=== PATIENT | female | born 1995 | race Caucasian/White ===

== ENCOUNTER 2016-11-15 15:50 | Emergency (ER) | payer OTHER ==
--- NOTE | 2016-11-15 17:13 | ED CLINICAL REPORT ---
Clinical Report - Physicians/Mid Levels [facility] [address] [place] [address] 11/15/2016 15:51 [id number] Time Seen: 16:18; initial patient contact, initial documentation, patient care assumed. Arrived- By private vehicle. Historian- patient. HISTORY OF PRESENT ILLNESS Chief Complaint: DYSURIA. This started about 4 days ago and still present. The symptoms are described as moderate. Modifying factors- worsened by urination. Not relieved by anything. No abdominal pain, pelvic pain, vaginal pain, low back pain or flank pain. No abnormal bleeding, vaginal discharge or hematuria. She has had pain with urination and urgency of urination. The patient has had urinary frequency. Sexually active. Uses an IUD as a means of control. (pt stating she can feel iud strings when she wipes, it was placed a month ago, and she really is not worried about it, she thinks she has a bladder infection). Denies current . Similar symptoms previously: None. Recent medical care: Not recently seen/assessed. REVIEW OF SYSTEMS No nausea, vomiting, diarrhea, fever or difficulty breathing. No chest pain. All systems otherwise negative, except as recorded above. PAST HISTORY Negative. SOCIAL HISTORY Light tobacco smoker. No alcohol use or drug use. No recent travel. Is a local resident. FAMILY HISTORY Negative. ADDITIONAL NOTES The nursing notes have been reviewed with agreement regarding the chief complaint, HPI, ROS, PMH and patient medications and allergies. PHYSICAL EXAM Vital Signs: 11/15/2016 16:02 BP: 107/68. HR: 68. RR: 18. O2 saturation: 100%. Temp: 98.2 F. Pain level now: 4/10. Have been reviewed as normal and appear to be correct. Appearance: Alert. Oriented X3. No acute distress. HEENT: Normal external inspection. ENT: Pharynx normal. Neck: Neck supple. CVS: Heart sounds normal. Respiratory: No respiratory distress. Breath sounds normal. Chest nontender. Abdomen: Soft and nontender. Back: Normal external inspection. Skin: Skin warm and dry. Normal skin color. No rash. Normal skin turgor. Extremities: Extremities nontender. No lower extremity edema. Neuro: Oriented X 3. Mood/affect normal. No motor deficit. No sensory deficit. PROGRESS AND PROCEDURES Patient counseled in person regarding the patient's stable condition, test results and diagnosis. 17:12. Differential Diagnosis: Other possible considerations: uti, urosepsis, pyelo, kidney stone, std. Above considerations are based on history, physical exam and laboratory data. Differential diagnosis was discussed with patient. Disposition: Discharged home in good and unchanged condition (17:12). Condition: good and stable. CLINICAL IMPRESSION Acute urinary tract infection with cystitis. No pyelonephritis or hematuria. Not associated with indwelling catheter or obstruction. INSTRUCTIONS Drink plenty of fluids for the next 24 hours until better. Warnings: GENERAL WARNINGS: Return or contact your physician immediately if your condition worsens or changes unexpectedly, if not improving as expected, or if other problems arise. Specifically return if problem worsens. Prescription Medications: Pyridium 200 mg: take 1 orally every 8 hours as needed for urinary problems. Dispense six (6). No refills. Substitution is permissible. Macrobid 100 mg: take 1 capsule orally every 12 hours for 5 days. No refill. Follow-up: Follow up with your doctor in about five days as needed. Call for an appointment. Summary of care provided to patient. Understanding of the discharge instructions verbalized by patient. (Electronically signed by Oneida Jimenez A.R.N.P. 11/15/2016 17:32)
--- NOTE | 2016-11-15 17:13 | ED NURSING NOTES ---
Clinical Report - Nurses [facility] [place] [address] [place] [address] 11/15/2016 15:51 [id number] Triage time 16:02. Acuity: LEVEL 3. Chief Complaint: PAINFUL URINATION, URGENCY and FREQUENCY. Alert. No acute distress. LUIS COMA SCORE: Luis Coma Scale: 15- eyes open spontaneously (4); best verbal response- oriented x 4 (5); best motor response- obeys commands (6). --16:08 Chapis Joshua R.N. 16:02 11/15/16. BP: 107/68. HR: 68. RR: 18. O2 saturation: 100% on room air. Temp: 98.2 F (oral). Pain level now: 12/20. --16:08 Chapis Joshua R.N. Weight: 68 kg stated. Height/Length: 66 inches Per Patient. BMI: 24.2. --16:05 Chapis Joshua R.N. Medications None. --16:03 Chapis Joshua R.N. Allergies No Known Drug Allergy. --16:04 Chapis Joshua R.N. History Arrived by private vehicle. Historian: patient. Accompanied by family. Primary physician (none). Onset. (about 4 days). PAST MEDICAL HX: Uses an intrauterine device. SOCIAL HX: Light tobacco smoker- less than 1/2 a pack per day. No alcohol use or drug use. FALL RISK ASSESSMENT: Fall risk assessment completed. No fall risk identified. FUNCTIONAL ASSESSMENT: Functional assessment: no impairments noted. LEARNING NEEDS ASSESSMENT: The learning needs assessment revealed no barriers. --16:08 Chapis Joshua R.N. PROBLEMS: no known problems. ADDITIONAL SURGERIES: no known surgeries. Assessment GENERAL / NEURO / PSYCH: Alert. Oriented X 4. Appears in no acute distress. Patient appears calm and cooperative. RESPIRATORY: Respirations not labored. SKIN: Skin is warm. --16:08 Chapis Joshua R.N. Interventions <<STRICKEN ENTRY-- ID band on patient. To treatment room. --16:08 Chapis Joshua R.N. --END STRIKE>> Correction --16:09 Chapis Joshua R.N. ID band on patient. To waiting room. --16:09 Chapis Joshua R.N. PHYSICAL ASSESSMENT 16:16 17. Ambulatory to room. Patient gowned. GENERAL / NEURO / PSYCH: Alert. Oriented X 4. RESPIRATORY: Respirations not labored. CVS: Capillary refill less than 2 seconds. GI / : Abdomen soft. SKIN: Skin is warm and dry. --16:17 Isabel Griffin R.N. NURSING PROGRESS NOTES 16:11. :patient confirmed. Clean catch urine collected; sample sent to lab. Specimen labeled in the presence of the patient. --16:11 Chapis Joshua R.N. 16:16 11/15/16. Patient gowned. Head of bed elevated. Reassurance given. Patient identifiers checked. Call light placed in reach. Side rails up. Bed placed in lowest position. Patient ready for evaluation- chart flagged. --16:16 Isabel Griffin R.N. DISPOSITION / DISCHARGE 17:20. Condition at departure: unchanged and stable. No learning barriers present. Discharge instructions provided and reviewed with the patient. Reviewed warnings (no sexual contact). Reviewed medication(s) (pyridium, macrobid). Patient verbalized understanding. Written instructions provided in Tajik. The patient was discharged home and unaccompanied at time of discharge. She left the Emergency Department ambulatory and via private vehicle. Patient driving. --17:34 Isabel Griffin R.N. 17:10 11/15/16. BP: 102/66. HR: 70. RR: 16. O2 saturation: 100%. Temp: deferred. Pain level now: 12/20. --17:34 Isabel Griffin R.N. Locked/Released at 11/15/2016 17:35 by Isabel Griffin R.N.
--- NOTE | 2016-11-15 17:13 | ED ORDER SUMMARY ---
..... Patient: SABRINA AVALOS OrderSheet [facility] VisitID: [id number] [address] [place] [address] 20y, F Registration Date/Time: 11/15/2016 ORDER SHEET Weight: 68.0 kg (stated) Allergies: No Known Drug Allergy GENERAL ORDERS: UA-Culture if indicated Urgent (16:11 11/15/2016 Eneida R.NArya per protocol) (16:11 Eneida R.N.) Urine Urgent (16:11 11/15/2016 Eneida R.N. per protocol) (16:11 Eneida R.N.) MEDICATION ORDERS: IV FLUIDS: ORDER SHEET NOTES: [Electronically signed by Oneida JimenezPArya (17:32 11/15/2016)] [Electronically signed by Isabel Griffin R.N. (17:35 11/15/2016)] [Electronically locked/signed by Isabel Griffin R.N. (17:35 11/15/2016)]
--- NOTE | 2016-11-15 17:13 | ED ORDER SUMMARY ---
..... Patient: SABRINA AVALOS OrderSheet [facility] VisitID: [id number] [address] [place] [address] 20y, F Registration Date/Time: 11/15/2016 ORDER SHEET Weight: 68.0 kg (stated) Allergies: No Known Drug Allergy GENERAL ORDERS: UA-Culture if indicated Urgent (16:11 11/15/2016 Eneiad R.NArya per protocol) (16:11 Eneida R.N.) Urine Urgent (16:11 11/15/2016 Eneida R.N. per protocol) (16:11 Eneida R.N.) MEDICATION ORDERS: IV FLUIDS: ORDER SHEET NOTES: [Electronically signed by Oneida JimenezPArya (17:32 11/15/2016)] [Electronically signed by Isabel Griffin R.N. (17:35 11/15/2016)] [Electronically locked/signed by Isabel Griffin R.N. (17:35 11/15/2016)]
--- NOTE | 2016-11-15 17:35 | ED MED RECONCILIATION SUMMARY ---
Patient: SABRINA AVALOS Medication Reconciliation Report [facility] VisitID: [id number] [address] [place] [address] 20y, F Registration Date/Time: 11/15/2016 Weight: 68.0 kg Height/Length: 66 in. BMI: 24.2 ALLERGIES: No Known Drug Allergy The patient's Home Medications are listed below: NONE. The source(s) of the original Home Medication information: Not obtained. The following Medications were given to the patient in the Emergency Department: None. The following Medications were prescribed to the patient: Pyridium 200 mg: take 1 orally every 8 hours as needed for urinary problems. Dispense six (6). No refills. Substitution is permissible. -- Oneida Jimenez, Cristina.R.N.P. Macrobid 100 mg: take 1 capsule orally every 12 hours for 5 days. No refill. -- Oneida Jimenez A.R.N.P.
--- NOTE | 2016-11-15 17:35 | ED DISCHARGE INSTRUCTIONS ---
Patient: SABRINA AVALOS General Instructions [facility] VisitID: [id number] [place] [address] 20y, F Registration Date/Time: 11/15/2016 Acute urinary tract infection with cystitis. No pyelonephritis or hematuria. Not associated with indwelling catheter or obstruction. INSTRUCTIONS Drink plenty of fluids for the next 24 hours until better. Warnings: GENERAL WARNINGS: Return or contact your physician immediately if your condition worsens or changes unexpectedly, if not improving as expected, or if other problems arise. Specifically return if problem worsens. Prescription Medications: Pyridium 200 mg: take 1 orally every 8 hours as needed for urinary problems. Dispense six (6). No refills. Substitution is permissible. Macrobid 100 mg: take 1 capsule orally every 12 hours for 5 days. No refill. Follow-up: Follow up with your doctor in about five days as needed. Call for an appointment. Summary of care provided to patient. Understanding of the discharge instructions verbalized by patient. ADDITIONAL INFORMATION Bladder Infection,Female (Adult) A bladder infection ("cystitis" or "UTI") usually causes a constant urge to urinate and a burning when passing urine. Urine may be cloudy, smelly or dark. There may be pain in the lower abdomen. A bladder infection occurs when bacteria from the vaginal area enter the bladder opening (urethra). This can occur from sexual intercourse, wearing tight clothing, dehydration and other factors. Home Care: Drink lots of fluids (at least 6-8 glasses a day, unless you must restrict fluids for other medical reasons). This will force the medicine into your urinary system and flush the bacteria out of your body. Avoid sexual intercourse until your symptoms are gone. Avoid caffeine, alcohol and spicy foods. These can irritate the bladder. A bladder infection is treated with antibiotics. You may also be given Pyridium (generic = phenazopyridine) to reduce the burning sensation. This medicine will cause your urine to become a bright orange color. The orange urine may stain clothing. You may wear a pad or panty-liner to protect clothing. Preventing Future Infections: Always wipe from front to back after a bowel movement. Keep the genital area clean and dry. Drink plenty of fluids each day to avoid dehydration. Both sexual partners should wash before intercourse. Urinate right after intercourse to flush out the bladder. Wear cotton underwear and cotton-lined panty hose; avoid tight-fitting pants. If you are on control pills and are having frequent bladder infections, discuss with your doctor. Follow Up: Return to this facility or see your doctor if ALL symptoms are not gone after three days of treatment. Get Prompt Medical Attention if any of the following occur: Fever of 100.4F (38C) or higher, or as directed by your healthcare provider No improvement by the third day of treatment Increasing back or abdominal pain Repeated vomiting; unable to keep medicine down Weakness, dizziness or fainting Vaginal discharge Pain, redness or swelling in the labia (outer vaginal area) Phenazopyridine Hydrochloride Oral tablet What is this medicine? PHENAZOPYRIDINE (fen az oh PEER i nadja) is a pain reliever. It is used to stop the pain, burning, or discomfort caused by infection or irritation of the urinary tract. This medicine is not an antibiotic. It will not cure a urinary tract infection. How should I use this medicine? Take this medicine by mouth with a glass of water. Follow the directions on the prescription label. Take after meals. Take your doses at regular intervals. Do not take your medicine more often than directed. Do not skip doses or stop your medicine early even if you feel better. Do not stop taking except on your doctor's advice. Talk to your raimann machine operator regarding the use of this medicine in children. Special care may be needed. What side effects may I notice from receiving this medicine? Side effects that you should report to your doctor or health acute care physician as soon as possible: allergic reactions like skin rash, itching or hives, swelling of the face, lips, or tongue blue or purple color of the skin difficulty breathing fever less urine unusual bleeding, bruising unusual tired, weak vomiting yellowing of the eyes or skin Side effects that usually do not require medical attention (report to your doctor or health acute care physician if they continue or are bothersome): dark urine headache stomach upset What may interact with this medicine? Interactions are not expected. What if I miss a dose? If you miss a dose, take it as soon as you can. If it is almost time for your next dose, take only that dose. Do not take double or extra doses. Where should I keep my medicine? Keep out of the reach of children. Store at room temperature between 15 and 30 degrees C (59 and 86 degrees F). Protect from light and moisture. Throw away any unused medicine after the expiration date. What should I tell my health care provider before I take this medicine? They need to know if you have any of these conditions: sxeqsng-3-jtyeqlnes dehydrogenase (G6PD) deficiency kidney disease an unusual or allergic reaction to phenazopyridine, other medicines, foods, dyes, or preservatives or trying to get breast-feeding What should I watch for while using this medicine? Tell your doctor or health acute care physician if your symptoms do not improve or if they get worse. This medicine colors body fluids red. This effect is harmless and will go away after you are done taking the medicine. It will change urine to an dark orange or red color. The red color may stain clothing. Soft contact lenses may become permanently stained. It is best not to wear soft contact lenses while taking this medicine. If you are diabetic you may get a false positive result for sugar in your urine. Talk to your health care provider. Nitrofurantoin, Nitrofurantoin, Macrocrystalline Oral capsule What is this medicine? NITROFURANTOIN (dalia malena alegre AN toyn) is an antibiotic. It is used to treat urinary tract infections. How should I use this medicine? Take this medicine by mouth with a glass of water. Follow the directions on the prescription label. Take this medicine with food or milk. Take your doses at regular intervals. Do not take your medicine more often than directed. Do not stop taking except on your doctor's advice. Talk to your raimann machine operator regarding the use of this medicine in children. While this drug may be prescribed for selected conditions, precautions do apply. What side effects may I notice from receiving this medicine? Side effects that you should report to your doctor or health acute care physician as soon as possible: allergic reactions like skin rash or hives, swelling of the face, lips, or tongue chest pain cough difficulty breathing dizziness, drowsiness fever or infection joint aches or pains pale or blue-tinted skin redness, blistering, peeling or loosening of the skin, including inside the mouth tingling, burning, pain, or numbness in hands or feet unusual bleeding or bruising unusually weak or tired yellowing of eyes or skin Side effects that usually do not require medical attention (report to your doctor or health acute care physician if they continue or are bothersome): dark urine diarrhea headache loss of appetite nausea or vomiting temporary hair loss What may interact with this medicine? antacids containing magnesium trisilicate probenecid quinolone antibiotics like ciprofloxacin, lomefloxacin, norfloxacin and ofloxacin sulfinpyrazone What if I miss a dose? If you miss a dose, take it as soon as you can. If it is almost time for your next dose, take only that dose. Do not take double or extra doses. Where should I keep my medicine? Keep out of the reach of children. Store at room temperature between 15 and 30 degrees C (59 and 86 degrees F). Protect from light. Throw away any unused medicine after the expiration date. What should I tell my health care provider before I take this medicine? They need to know if you have any of these conditions: anemia diabetes apfzgja-6-slutpziup dehydrogenase deficiency kidney disease liver disease lung disease other chronic illness an unusual or allergic reaction to nitrofurantoin, other antibiotics, other medicines, foods, dyes or preservatives or trying to get breast-feeding What should I watch for while using this medicine? Tell your doctor or health acute care physician if your symptoms do not improve or if you get new symptoms. Drink several glasses of water a day. If you are taking this medicine for a long time, visit your doctor for regular checks on your progress. If you are diabetic, you may get a false positive result for sugar in your urine with certain brands of urine tests. Check with your doctor. You have been given the following additional information: Bladder Infection, Female (Adult) Phenazopyridine Hydrochloride Oral tablet Nitrofurantoin, Nitrofurantoin, Macrocrystalline Oral capsule (Electronically signed by Oneida Jimenez A.R.N.P. 11/15/2016 17:32)
--- NOTE | 2016-11-15 17:35 | ED DISCHARGE INSTRUCTIONS ---
Patient: SABRINA AVLAOS General Instructions [facility] VisitID: [id number] [place] [address] 20y, F Registration Date/Time: 11/15/2016 Acute urinary tract infection with cystitis. No pyelonephritis or hematuria. Not associated with indwelling catheter or obstruction. INSTRUCTIONS Drink plenty of fluids for the next 24 hours until better. Warnings: GENERAL WARNINGS: Return or contact your physician immediately if your condition worsens or changes unexpectedly, if not improving as expected, or if other problems arise. Specifically return if problem worsens. Prescription Medications: Pyridium 200 mg: take 1 orally every 8 hours as needed for urinary problems. Dispense six (6). No refills. Substitution is permissible. Macrobid 100 mg: take 1 capsule orally every 12 hours for 5 days. No refill. Follow-up: Follow up with your doctor in about five days as needed. Call for an appointment. Summary of care provided to patient. Understanding of the discharge instructions verbalized by patient. ADDITIONAL INFORMATION Bladder Infection,Female (Adult) A bladder infection ("cystitis" or "UTI") usually causes a constant urge to urinate and a burning when passing urine. Urine may be cloudy, smelly or dark. There may be pain in the lower abdomen. A bladder infection occurs when bacteria from the vaginal area enter the bladder opening (urethra). This can occur from sexual intercourse, wearing tight clothing, dehydration and other factors. Home Care: Drink lots of fluids (at least 6-8 glasses a day, unless you must restrict fluids for other medical reasons). This will force the medicine into your urinary system and flush the bacteria out of your body. Avoid sexual intercourse until your symptoms are gone. Avoid caffeine, alcohol and spicy foods. These can irritate the bladder. A bladder infection is treated with antibiotics. You may also be given Pyridium (generic = phenazopyridine) to reduce the burning sensation. This medicine will cause your urine to become a bright orange color. The orange urine may stain clothing. You may wear a pad or panty-liner to protect clothing. Preventing Future Infections: Always wipe from front to back after a bowel movement. Keep the genital area clean and dry. Drink plenty of fluids each day to avoid dehydration. Both sexual partners should wash before intercourse. Urinate right after intercourse to flush out the bladder. Wear cotton underwear and cotton-lined panty hose; avoid tight-fitting pants. If you are on control pills and are having frequent bladder infections, discuss with your doctor. Follow Up: Return to this facility or see your doctor if ALL symptoms are not gone after three days of treatment. Get Prompt Medical Attention if any of the following occur: Fever of 100.4F (38C) or higher, or as directed by your healthcare provider No improvement by the third day of treatment Increasing back or abdominal pain Repeated vomiting; unable to keep medicine down Weakness, dizziness or fainting Vaginal discharge Pain, redness or swelling in the labia (outer vaginal area) Phenazopyridine Hydrochloride Oral tablet What is this medicine? PHENAZOPYRIDINE (fen az oh PEER i nadja) is a pain reliever. It is used to stop the pain, burning, or discomfort caused by infection or irritation of the urinary tract. This medicine is not an antibiotic. It will not cure a urinary tract infection. How should I use this medicine? Take this medicine by mouth with a glass of water. Follow the directions on the prescription label. Take after meals. Take your doses at regular intervals. Do not take your medicine more often than directed. Do not skip doses or stop your medicine early even if you feel better. Do not stop taking except on your doctor's advice. Talk to your folder seamer automatic regarding the use of this medicine in children. Special care may be needed. What side effects may I notice from receiving this medicine? Side effects that you should report to your doctor or health geriatric personal care aide as soon as possible: allergic reactions like skin rash, itching or hives, swelling of the face, lips, or tongue blue or purple color of the skin difficulty breathing fever less urine unusual bleeding, bruising unusual tired, weak vomiting yellowing of the eyes or skin Side effects that usually do not require medical attention (report to your doctor or health geriatric personal care aide if they continue or are bothersome): dark urine headache stomach upset What may interact with this medicine? Interactions are not expected. What if I miss a dose? If you miss a dose, take it as soon as you can. If it is almost time for your next dose, take only that dose. Do not take double or extra doses. Where should I keep my medicine? Keep out of the reach of children. Store at room temperature between 15 and 30 degrees C (59 and 86 degrees F). Protect from light and moisture. Throw away any unused medicine after the expiration date. What should I tell my health care provider before I take this medicine? They need to know if you have any of these conditions: fmiglgc-2-hcwapwjgn dehydrogenase (G6PD) deficiency kidney disease an unusual or allergic reaction to phenazopyridine, other medicines, foods, dyes, or preservatives or trying to get breast-feeding What should I watch for while using this medicine? Tell your doctor or health geriatric personal care aide if your symptoms do not improve or if they get worse. This medicine colors body fluids red. This effect is harmless and will go away after you are done taking the medicine. It will change urine to an dark orange or red color. The red color may stain clothing. Soft contact lenses may become permanently stained. It is best not to wear soft contact lenses while taking this medicine. If you are diabetic you may get a false positive result for sugar in your urine. Talk to your health care provider. Nitrofurantoin, Nitrofurantoin, Macrocrystalline Oral capsule What is this medicine? NITROFURANTOIN (dalia malena alegre AN toyn) is an antibiotic. It is used to treat urinary tract infections. How should I use this medicine? Take this medicine by mouth with a glass of water. Follow the directions on the prescription label. Take this medicine with food or milk. Take your doses at regular intervals. Do not take your medicine more often than directed. Do not stop taking except on your doctor's advice. Talk to your folder seamer automatic regarding the use of this medicine in children. While this drug may be prescribed for selected conditions, precautions do apply. What side effects may I notice from receiving this medicine? Side effects that you should report to your doctor or health geriatric personal care aide as soon as possible: allergic reactions like skin rash or hives, swelling of the face, lips, or tongue chest pain cough difficulty breathing dizziness, drowsiness fever or infection joint aches or pains pale or blue-tinted skin redness, blistering, peeling or loosening of the skin, including inside the mouth tingling, burning, pain, or numbness in hands or feet unusual bleeding or bruising unusually weak or tired yellowing of eyes or skin Side effects that usually do not require medical attention (report to your doctor or health geriatric personal care aide if they continue or are bothersome): dark urine diarrhea headache loss of appetite nausea or vomiting temporary hair loss What may interact with this medicine? antacids containing magnesium trisilicate probenecid quinolone antibiotics like ciprofloxacin, lomefloxacin, norfloxacin and ofloxacin sulfinpyrazone What if I miss a dose? If you miss a dose, take it as soon as you can. If it is almost time for your next dose, take only that dose. Do not take double or extra doses. Where should I keep my medicine? Keep out of the reach of children. Store at room temperature between 15 and 30 degrees C (59 and 86 degrees F). Protect from light. Throw away any unused medicine after the expiration date. What should I tell my health care provider before I take this medicine? They need to know if you have any of these conditions: anemia diabetes qcadiob-2-baczsodwr dehydrogenase deficiency kidney disease liver disease lung disease other chronic illness an unusual or allergic reaction to nitrofurantoin, other antibiotics, other medicines, foods, dyes or preservatives or trying to get breast-feeding What should I watch for while using this medicine? Tell your doctor or health geriatric personal care aide if your symptoms do not improve or if you get new symptoms. Drink several glasses of water a day. If you are taking this medicine for a long time, visit your doctor for regular checks on your progress. If you are diabetic, you may get a false positive result for sugar in your urine with certain brands of urine tests. Check with your doctor. You have been given the following additional information: Bladder Infection, Female (Adult) Phenazopyridine Hydrochloride Oral tablet Nitrofurantoin, Nitrofurantoin, Macrocrystalline Oral capsule (Electronically signed by Oneida Jimenez A.R.N.P. 11/15/2016 17:32)
--- NOTE | 2016-11-15 17:35 | ED MAR SUMMARY ---
..... Medication Administration Record [facility] [address] [place], [place] [id number] Patient: ALINA MCKOYSABRINA Visit ID: [id number] 20y, F Weight: 68.0 kg Height/Length: 66 in BMI: 24.2 ALLERGIES: No Known Drug Allergy
--- NOTE | 2016-11-15 17:35 | ED MAR SUMMARY ---
..... Medication Administration Record [facility] [address] [place], [place] [id number] Patient: ALINA MCKOYSABRINA Visit ID: [id number] 20y, F Weight: 68.0 kg Height/Length: 66 in BMI: 24.2 ALLERGIES: No Known Drug Allergy
--- NOTE | 2016-11-15 17:35 | ED MED RECONCILIATION SUMMARY ---
Patient: SABRINA AVALOS Medication Reconciliation Report [facility] VisitID: [id number] [address] [place] [address] 20y, F Registration Date/Time: 11/15/2016 Weight: 68.0 kg Height/Length: 66 in. BMI: 24.2 ALLERGIES: No Known Drug Allergy The patient's Home Medications are listed below: NONE. The source(s) of the original Home Medication information: Not obtained. The following Medications were given to the patient in the Emergency Department: None. The following Medications were prescribed to the patient: Pyridium 200 mg: take 1 orally every 8 hours as needed for urinary problems. Dispense six (6). No refills. Substitution is permissible. -- Oneida Jimenez, Cristina.R.N.P. Macrobid 100 mg: take 1 capsule orally every 12 hours for 5 days. No refill. -- Oneida Jimenez A.R.N.P.
== END 2016-11-15 17:20 | disposition home or self-care (01) ==
LOC: ED SRH 15:50
DX: N30.00 Acute cystitis without hematuria (principal); F17.200 Nicotine dependence, unspecified, uncomplicated
CPT/HCPCS: 90004; 90469; 93070

== ENCOUNTER → 2016-11-17 | Emergency (ER) | payer OTHER ==
--- NOTE | 2016-11-18 02:34 | ED ORDER SUMMARY ---
..... Patient: SABRINA AVALOS OrderSheet [facility] VisitID: [id number] [address] [place] [address] 20y, F Registration Date/Time: 11/17/2016 ORDER SHEET Weight: 68.0 kg (stated) Allergies: No Known Drug Allergy GENERAL ORDERS: GC/Chlamydia (Vaginal) (vagina) Urgent (16:11/17/2016 HBivens A.R.N.P.) (Ack 16:10 Cherelle) (16:45 KKnebel R.N.) Wet Prep (Vaginal) (vagina) Urgent (16:11/17/2016 HBivens A.R.N.P.) (Ack 16:10 Cherelle) (16:45 KKnebel R.N.) MEDICATION ORDERS: IV FLUIDS: ORDER SHEET NOTES: [Electronically signed by Isabel Griffin R.N. (17:57 11/17/2016)] [Electronically signed by Oneida Jimenez.R.N.P. (18:09 11/17/2016)] [Electronically locked/signed by Isabel Griffin R.N. (17:57 11/17/2016)]
--- NOTE | 2016-11-18 02:34 | ED NURSING NOTES ---
Clinical Report - Nurses [facility] [address] [place] [address] 11/17/2016 15:33 Patient: SABRINA AVALOS TRIAGE Triage time 1541. Acuity: LEVEL 4. Chief Complaint: PELVIC PAIN and VAGINAL DISCHARGE and (pt in here 2 days ago with UTI, worried that she has smelly discharge, asking to be checked for STI's , had Chlamidia 2 months ago). 15:41. --15:50 Isabel Griffin R.N. 15:40 11/17/16. BP: 117/66. HR: 98. RR: 18. O2 saturation: 99%. Temp: 99.1 F. Pain level now: 510. --15:50 Isabel Griffin R.N. Weight: 68 kg stated. Height/Length: 66 inches Per Patient. BMI: 24.2. --15:42 Isabel Griffin R.N. Medications Pyridium Oral 200 mg, 3x a day. --15:45 Isabel Griffin R.N. Macrobid 100mg bid . --15:45 Isabel Griffin R.N. Allergies No Known Drug Allergy. --15:45 Isabel Griffin R.N. History Arrived by private vehicle. Historian: patient. Accompanied by friend. Primary physician ([facility]ake [facility]). PAST MEDICAL HX: Last normal menstrual period- IUD in place 1 1/2 months. SURGERY HX: No history of previous surgery. SOCIAL HX: Former smoker- less than 1/2 a pack per day. No alcohol use or drug use. --15:50 Isabel Griffin R.N. PROBLEMS: UTI - Urinary Tract Infection. --15:49 Isabel Griffin R.N. Interventions ID band on patient. To treatment room. --15:50 Isabel Griffin R.N. PHYSICAL ASSESSMENT 15:41. Ambulatory to room. Patient gowned. GENERAL / NEURO / PSYCH: Alert. Oriented X 4. Appears anxious. RESPIRATORY: Respirations not labored. CVS: Capillary refill less than 2 seconds. GI / : Abdomen soft. Vaginal discharge present. ( worries because discharge "really smells" --had Chlamydia 2 months ago, worried it may be back). SKIN: Skin is warm and dry. --15:42 Isabel Griffin R.N. NURSING PROGRESS NOTES 15:41 11/17/16. Patient gowned. Head of bed elevated. Reassurance given. Patient identifiers checked. Call light placed in reach. Side rails up. Bed placed in lowest position. --15:41 Isabel Griffin R.N. 15:41 11/17/16. Patient ID band checked for patient name and birthdate: patient confirmed. Clean catch urine collected with return of yellow-colored clear urine; sample sent to lab for urinalysis and culture. Specimen labeled in the presence of the patient. --15:41 Isabel Griffin R.N. 15:50 11/17/16. Patient ready for evaluation- chart flagged. --15:50 Isabel Griffin R.N. 16:10. PELVIC EXAM: Pelvic exam performed by ROLLED HAM LACER. Assisted by one nurse. Preparation: pelvic tray; patient placed in lithotomy position. Procedure: speculum and bimanual exam. Specimens collected and sent to lab: GC, chlamydia, wet prep and DNA probe. Status post-procedure: she was stable. Total time of assist / procedure: 15 minutes. --17:37 Isabel Griffin R.N. DISPOSITION / DISCHARGE Condition at departure: improved. No learning barriers present. Discharge instructions provided and reviewed with the patient. Reviewed medication(s) side effects, precautions, dosing and course information. Reviewed referral to a primary care physician. Patient verbalized understanding. Written instructions provided in Maori. The patient was discharged home. She left the Emergency Department ambulatory and via private vehicle. Patient driving. FALL RISK ASSESSMENT: Fall risk assessment completed. No fall risk identified. --16:47 Margaret Salazar R.N. 16:45 11/17/16. BP: 95/49. HR: 94. RR: 16. O2 saturation: 100%. Pain level now: 0/10. --16:47 Margaret Salazar R.N. Departure time: 16:47 Nov 17 2016. --16:47 Margaret Salazar R.N. Locked/Released at 11/17/2016 17:57 by Isabel Griffin R.N.
--- NOTE | 2016-11-18 02:34 | ED NURSING NOTES ---
Clinical Report - Nurses [facility] [address] [place] [address] 11/17/2016 15:33 Patient: SABRINA AVALOS TRIAGE Triage time 1541. Acuity: LEVEL 4. Chief Complaint: PELVIC PAIN and VAGINAL DISCHARGE and (pt in here 2 days ago with UTI, worried that she has smelly discharge, asking to be checked for STI's , had Chlamidia 2 months ago). 15:41. --15:50 Isabel Griffin R.N. 15:40 11/17/16. BP: 117/66. HR: 98. RR: 18. O2 saturation: 99%. Temp: 99.1 F. Pain level now: 510. --15:50 Isabel Griffin R.N. Weight: 68 kg stated. Height/Length: 66 inches Per Patient. BMI: 24.2. --15:42 Isabel Griffin R.N. Medications Pyridium Oral 200 mg, 3x a day. --15:45 Isabel Griffin R.N. Macrobid 100mg bid . --15:45 Isabel Griffin R.N. Allergies No Known Drug Allergy. --15:45 Isabel Griffin R.N. History Arrived by private vehicle. Historian: patient. Accompanied by friend. 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 PAST MEDICAL HX: Last normal menstrual period- IUD in place 1 1/2 months. SURGERY HX: No history of previous surgery. SOCIAL HX: Former smoker- less than 1/2 a pack per day. No alcohol use or drug use. --15:50 Isabel Griffin R.N. PROBLEMS: UTI - Urinary Tract Infection. --15:49 Isabel Griffin R.N. Interventions ID band on patient. To treatment room. --15:50 Isabel Griffin R.N. PHYSICAL ASSESSMENT 15:41. Ambulatory to room. Patient gowned. GENERAL / NEURO / PSYCH: Alert. Oriented X 4. Appears anxious. RESPIRATORY: Respirations not labored. CVS: Capillary refill less than 2 seconds. GI / : Abdomen soft. Vaginal discharge present. ( worries because discharge "really smells" --had Chlamydia 2 months ago, worried it may be back). SKIN: Skin is warm and dry. --15:42 Isabel Griffin R.N. NURSING PROGRESS NOTES 15:41 11/17/16. Patient gowned. Head of bed elevated. Reassurance given. Patient identifiers checked. Call light placed in reach. Side rails up. Bed placed in lowest position. --15:41 Isabel Griffin R.N. 15:41 11/17/16. Patient ID band checked for patient name and birthdate: patient confirmed. Clean catch urine collected with return of yellow-colored clear urine; sample sent to lab for urinalysis and culture. Specimen labeled in the presence of the patient. --15:41 Isabel Griffin R.N. 15:50 11/17/16. Patient ready for evaluation- chart flagged. --15:50 Isabel Griffin R.N. 16:10. PELVIC EXAM: Pelvic exam performed by PHARMACY STUDENT. Assisted by one nurse. Preparation: pelvic tray; patient placed in lithotomy position. Procedure: speculum and bimanual exam. Specimens collected and sent to lab: GC, chlamydia, wet prep and DNA probe. Status post-procedure: she was stable. Total time of assist / procedure: 15 minutes. --17:37 Isabel Griffin R.N. DISPOSITION / DISCHARGE Condition at departure: improved. No learning barriers present. Discharge instructions provided and reviewed with the patient. Reviewed medication(s) side effects, precautions, dosing and course information. Reviewed referral to a primary care physician. Patient verbalized understanding. Written instructions provided in Tajik. The patient was discharged home. She left the Emergency Department ambulatory and via private vehicle. Patient driving. FALL RISK ASSESSMENT: Fall risk assessment completed. No fall risk identified. --16:47 Margaret Salazar R.N. 16:45 11/17/16. BP: 95/49. HR: 94. RR: 16. O2 saturation: 100%. Pain level now: 0/10. --16:47 Margaret Salazar R.N. Departure time: 16:47 Nov 17 2016. --16:47 Margaret Salazar R.N. Locked/Released at 11/17/2016 17:57 by Isabel Griffin R.N.
--- NOTE | 2016-11-18 02:34 | ED ORDER SUMMARY ---
..... Patient: SABRINA AVALOS OrderSheet [facility] VisitID: [id number] [address] [place] [address] 20y, F Registration Date/Time: 11/17/2016 ORDER SHEET Weight: 68.0 kg (stated) Allergies: No Known Drug Allergy GENERAL ORDERS: GC/Chlamydia (Vaginal) (vagina) Urgent (16:11/17/2016 HBivens A.R.N.P.) (Ack 16:10 Cherelle) (16:45 KKnebel R.N.) Wet Prep (Vaginal) (vagina) Urgent (16:11/17/2016 HBivens A.R.N.P.) (Ack 16:10 Cherelle) (16:45 KKnebel R.N.) MEDICATION ORDERS: IV FLUIDS: ORDER SHEET NOTES: [Electronically signed by Isabel Griffin R.N. (17:57 11/17/2016)] [Electronically signed by Oneida Jimenez.R.N.P. (18:09 11/17/2016)] [Electronically locked/signed by Isabel Griffin R.N. (17:57 11/17/2016)]
--- NOTE | 2016-11-18 02:34 | ED CLINICAL REPORT ---
Clinical Report - Physicians/Mid Levels [facility] [address] [place] [address] 11/17/2016 15:33 [id number] Time Seen: 15:38; upon arrival, initial patient contact, initial documentation, patient care assumed. Arrived- By private vehicle. Historian- patient. RETURN VISIT: recently seen in this ED by me. Seen now for a new unrelated complaint. HISTORY OF PRESENT ILLNESS Chief Complaint: VAGINAL DISCHARGE. This started about 4 days ago and now gone. The symptoms are described as mild. Modifying factors. Not worsened by anything. Not relieved by anything. The patient has had pelvic pain. She has had a vaginal discharge (one time episode of something yellow/white that came out). No vaginal pain, low back pain, flank pain, pain with urination or urinary frequency. No urgency of urination or hematuria. Similar symptoms previously: Once, worse. ( had chlamydia). Recent medical care: The patient was seen recently at this facility in the emergency department. ( txed here by me, x2 days ago, dx with uti, rx macrobid and pyridium). REVIEW OF SYSTEMS No nausea, vomiting, diarrhea, fever or difficulty breathing. No chest pain. All systems otherwise negative, except as recorded above. PAST HISTORY See nurses notes. ( PROBLEMS: UTI - Urinary Tract Infection. --15:49 Elias, Isabel, RAryaN.). Sexually transmitted disease: chlamydia. ( Chlamydia). SOCIAL HISTORY Light tobacco smoker. No alcohol use or drug use. No recent travel. Is a local resident. FAMILY HISTORY Negative. ADDITIONAL NOTES The nursing notes have been reviewed with agreement regarding the chief complaint, HPI, ROS, PMH and patient medications and allergies. PHYSICAL EXAM Vital Signs: 11/17/2016 15:40 BP: 117/66. HR: 98. RR: 18. O2 saturation: 99%. Temp: 99.1 F. Pain level now: 5/10. Appearance: Alert. Oriented X3. No acute distress. HEENT: Normal external inspection. ENT: Pharynx normal. Neck: Neck supple. CVS: Heart sounds normal. Respiratory: No respiratory distress. Breath sounds normal. Chest nontender. Abdomen: Soft and nontender. Back: Normal external inspection. : External inspection abnormal. Speculum exam normal. Bimanual exam normal. (fishy odor). Skin: Skin warm and dry. Normal skin color. No rash. Normal skin turgor. Extremities: Extremities nontender. No lower extremity edema. Neuro: Oriented X 3. Mood/affect normal. No motor deficit. No sensory deficit. LABS, X-RAYS, AND EKG Laboratory Tests: Wet Prep: (JUSTO: 11/17/2016 16:08) ( MsgRcvd 11/17/2016 16:23) Final results SPECIMEN DESCRIPTION: VAGINA Test Result Flag Units (Reference) WET MOUNT CLUE CELLS:: FEW * EPITHELIAL CELLS: MODERATE -- SOURCE?: VAGINAL WHITE BLOOD CELLS: MODERATE TRICHOMONAS:: NONE -- YEAST:: NONE . PROGRESS AND PROCEDURES Patient counseled in person regarding the patient's stable condition, test results and diagnosis. 16:27. Differential Diagnosis: Other possible considerations: chlamydia, gonorrhea, trich, yeast, bv, pid. Above considerations are based on history, physical exam and reassessment. Differential diagnosis was discussed with patient. Disposition: Discharged home in good and unchanged condition (16:28). Condition: good and stable. CLINICAL IMPRESSION Acute mild bacterial vaginitis INSTRUCTIONS Warnings: GENERAL WARNINGS: Return or contact your physician immediately if your condition worsens or changes unexpectedly, if not improving as expected, or if other problems arise. Specifically return if problem worsens. Prescription Medications: Flagyl 500 mg: Take 1 tablet orally every 12 hours for 7 days. No refill. Substitution is permissible. Follow-up: Follow up with your doctor in about three days as needed. Call for an appointment. Summary of care provided to patient. Understanding of the discharge instructions verbalized by patient. (Electronically signed by Oneida Jimenez A.R.N.P. 11/17/2016 18:09)
--- NOTE | 2016-11-18 02:36 | ED DISCHARGE INSTRUCTIONS ---
Patient: SABRINA AVALOS General Instructions [facility] VisitID: [id number] [place] [address] 20y, F Registration Date/Time: 11/17/2016 Acute mild bacterial vaginitis INSTRUCTIONS Warnings: GENERAL WARNINGS: Return or contact your physician immediately if your condition worsens or changes unexpectedly, if not improving as expected, or if other problems arise. Specifically return if problem worsens. Prescription Medications: Flagyl 500 mg: Take 1 tablet orally every 12 hours for 7 days. No refill. Substitution is permissible. Follow-up: Follow up with your doctor in about three days as needed. Call for an appointment. Summary of care provided to patient. Understanding of the discharge instructions verbalized by patient. ADDITIONAL INFORMATION Bacterial Vaginosis You have a bacterial infection of the vagina called bacterial vaginosis (BV). It may also be called gardnerella or non-specific vaginitis. BV occurs when the "bad" bacteria outnumber the "good" bacteria that are normally present in the vagina. Symptoms include foul-smelling vaginal discharge (most noticeable after vaginal intercourse). There may also be burning with urination. The burning is caused as the urine passes over the inflamed outer vaginal area. The cause of bacterial vaginosis is not certain. However, your risk is higher if you recently began a new sexual relationship, or have had many sex partners in the past. Your risk is also higher if you douche often. While bacterial vaginosis most often occurs only in sexually active women, this is not a true sexually transmitted disease. You did not get this from your partner. You cannot give it to your partner. The infection may be related to temporary changes in the pH of vaginal fluids after being exposed to semen. Home Care: Keep the genital area clean and free of discharge. Do this by wearing an absorbent sanitary pad and changing it often. Shower daily. When you shower, clean the outer vaginal area with plain soap and water. Do not douche during treatment unless advised to do so by your doctor. Routine douching after treatment is no longer recommended to clean the vagina. It raises your risk of vaginal infection and pelvic inflammatory disease. Avoid having sex until you have finished all antibiotic medicine and all symptoms have gone away. Wear cotton underwear or cotton-lined panty hose. Dont wear pants that are too tight. Limiting the number of sex partners you have lowers your risk of this and other vaginal infections, STDs, and HIV. Take all medicine as directed until it is gone, even if you are feeling better. If you dont do this, symptoms might return. Follow Up with your doctor if symptoms dont go away after the medicine is finished. Get Prompt Medical Attention if any of the following occur: Fever of 100.4F (38C) or higher, or as directed by your healthcare provider Lower abdominal pain Rash or joint pain Painful sores around the outer vaginal area or on your partners penis Metronidazole Oral tablet What is this medicine? METRONIDAZOLE (me troe NI da zole) is an antiinfective. It is used to treat certain kinds of bacterial and protozoal infections. It will not work for colds, flu, or other viral infections. How should I use this medicine? Take this medicine by mouth with a full glass of water. Follow the directions on the prescription label. Take your medicine at regular intervals. Do not take your medicine more often than directed. Take all of your medicine as directed even if you think you are better. Do not skip doses or stop your medicine early. Talk to your fuse assembler regarding the use of this medicine in children. Special care may be needed. What side effects may I notice from receiving this medicine? Side effects that you should report to your doctor or health professional healthcare representative as soon as possible: allergic reactions like skin rash or hives, swelling of the face, lips, or tongue confusion, clumsiness difficulty speaking discolored or sore mouth dizziness fever, infection numbness, tingling, pain or weakness in the hands or feet trouble passing urine or change in the amount of urine redness, blistering, peeling or loosening of the skin, including inside the mouth seizures unusually weak or tired vaginal irritation, dryness, or discharge Side effects that usually do not require medical attention (report to your doctor or health professional healthcare representative if they continue or are bothersome): diarrhea headache irritability metallic taste nausea stomach pain or cramps trouble sleeping What may interact with this medicine? Do not take this medicine with any of the following medications: alcohol or any product that contains alcohol amprenavir oral solution cisapride disulfiram dofetilide dronedarone paclitaxel injection pimozide ritonavir oral solution sertraline oral solution sulfamethoxazole-trimethoprim injection thioridazine ziprasidone This medicine may also interact with the following medications: cimetidine lithium other medicines that prolong the QT interval (cause an abnormal heart rhythm) phenobarbital phenytoin warfarin What if I miss a dose? If you miss a dose, take it as soon as you can. If it is almost time for your next dose, take only that dose. Do not take double or extra doses. Where should I keep my medicine? Keep out of the reach of children. Store at room temperature below 25 degrees C (77 degrees F). Protect from light. Keep container tightly closed. Throw away any unused medicine after the expiration date. What should I tell my health care provider before I take this medicine? They need to know if you have any of these conditions: anemia or other blood disorders disease of the nervous system fungal or yeast infection if you drink alcohol containing drinks liver disease seizures an unusual or allergic reaction to metronidazole, or other medicines, foods, dyes, or preservatives or trying to get breast-feeding What should I watch for while using this medicine? Tell your doctor or health professional healthcare representative if your symptoms do not improve or if they get worse. You may get drowsy or dizzy. Do not drive, use machinery, or do anything that needs mental alertness until you know how this medicine affects you. Do not stand or sit up quickly, especially if you are an older patient. This reduces the risk of dizzy or fainting spells. Avoid alcoholic drinks while you are taking this medicine and for three days afterward. Alcohol may make you feel dizzy, sick, or flushed. If you are being treated for a sexually transmitted disease, avoid sexual contact until you have finished your treatment. Your sexual partner may also need treatment. You have been given the following additional information: Vaginitis, Bacterial Metronidazole Oral tablet (Electronically signed by Oneida Jimenez A.R.N.P. 11/17/2016 18:09)
--- NOTE | 2016-11-18 02:36 | ED MAR SUMMARY ---
..... Medication Administration Record [facility] [address] [place], [place] [id number] Patient: ALINA MCKOYSABRINA Visit ID: [id number] 20y, F Weight: 68.0 kg Height/Length: 66 in BMI: 24.2 ALLERGIES: No Known Drug Allergy
--- NOTE | 2016-11-18 02:36 | ED MAR SUMMARY ---
..... Medication Administration Record [facility] [address] [place], [place] [id number] Patient: ALINA MCKOYSABRINA Visit ID: [id number] 20y, F Weight: 68.0 kg Height/Length: 66 in BMI: 24.2 ALLERGIES: No Known Drug Allergy
--- NOTE | 2016-11-18 02:36 | ED MED RECONCILIATION SUMMARY ---
Patient: SABRINA AVALOS Medication Reconciliation Report [facility] VisitID: [id number] [address] [place] [address] 20y, F Registration Date/Time: 11/17/2016 Weight: 68.0 kg Height/Length: 66 in. BMI: 24.2 ALLERGIES: No Known Drug Allergy The patient's Home Medications are listed below: THE FOLLOWING MEDICATIONS NEED TO BE RECONCILED: Macrobid 100mg bid Pyridium Oral 200 mg, 3x a day The source(s) of the original Home Medication information: Not obtained. The following Medications were given to the patient in the Emergency Department: None. The following Medications were prescribed to the patient: Flagyl 500 mg: Take 1 tablet orally every 12 hours for 7 days. No refill. Substitution is permissible. -- Oneida Jimenez A.R.N.P.
--- NOTE | 2016-11-18 02:36 | ED MED RECONCILIATION SUMMARY ---
Patient: SABRINA AVALOS Medication Reconciliation Report [facility] VisitID: [id number] [address] [place] [address] 20y, F Registration Date/Time: 11/17/2016 Weight: 68.0 kg Height/Length: 66 in. BMI: 24.2 ALLERGIES: No Known Drug Allergy The patient's Home Medications are listed below: THE FOLLOWING MEDICATIONS NEED TO BE RECONCILED: Macrobid 100mg bid Pyridium Oral 200 mg, 3x a day The source(s) of the original Home Medication information: Not obtained. The following Medications were given to the patient in the Emergency Department: None. The following Medications were prescribed to the patient: Flagyl 500 mg: Take 1 tablet orally every 12 hours for 7 days. No refill. Substitution is permissible. -- Oneida Jimenez A.R.N.P.
--- NOTE | 2016-11-18 02:36 | ED DISCHARGE INSTRUCTIONS ---
Patient: SABRINA AVALOS General Instructions [facility] VisitID: [id number] [place] [address] 20y, F Registration Date/Time: 11/17/2016 Acute mild bacterial vaginitis INSTRUCTIONS Warnings: GENERAL WARNINGS: Return or contact your physician immediately if your condition worsens or changes unexpectedly, if not improving as expected, or if other problems arise. Specifically return if problem worsens. Prescription Medications: Flagyl 500 mg: Take 1 tablet orally every 12 hours for 7 days. No refill. Substitution is permissible. Follow-up: Follow up with your doctor in about three days as needed. Call for an appointment. Summary of care provided to patient. Understanding of the discharge instructions verbalized by patient. ADDITIONAL INFORMATION Bacterial Vaginosis You have a bacterial infection of the vagina called bacterial vaginosis (BV). It may also be called gardnerella or non-specific vaginitis. BV occurs when the "bad" bacteria outnumber the "good" bacteria that are normally present in the vagina. Symptoms include foul-smelling vaginal discharge (most noticeable after vaginal intercourse). There may also be burning with urination. The burning is caused as the urine passes over the inflamed outer vaginal area. The cause of bacterial vaginosis is not certain. However, your risk is higher if you recently began a new sexual relationship, or have had many sex partners in the past. Your risk is also higher if you douche often. While bacterial vaginosis most often occurs only in sexually active women, this is not a true sexually transmitted disease. You did not get this from your partner. You cannot give it to your partner. The infection may be related to temporary changes in the pH of vaginal fluids after being exposed to semen. Home Care: Keep the genital area clean and free of discharge. Do this by wearing an absorbent sanitary pad and changing it often. Shower daily. When you shower, clean the outer vaginal area with plain soap and water. Do not douche during treatment unless advised to do so by your doctor. Routine douching after treatment is no longer recommended to clean the vagina. It raises your risk of vaginal infection and pelvic inflammatory disease. Avoid having sex until you have finished all antibiotic medicine and all symptoms have gone away. Wear cotton underwear or cotton-lined panty hose. Dont wear pants that are too tight. Limiting the number of sex partners you have lowers your risk of this and other vaginal infections, STDs, and HIV. Take all medicine as directed until it is gone, even if you are feeling better. If you dont do this, symptoms might return. Follow Up with your doctor if symptoms dont go away after the medicine is finished. Get Prompt Medical Attention if any of the following occur: Fever of 100.4F (38C) or higher, or as directed by your healthcare provider Lower abdominal pain Rash or joint pain Painful sores around the outer vaginal area or on your partners penis Metronidazole Oral tablet What is this medicine? METRONIDAZOLE (me troe NI da zole) is an antiinfective. It is used to treat certain kinds of bacterial and protozoal infections. It will not work for colds, flu, or other viral infections. How should I use this medicine? Take this medicine by mouth with a full glass of water. Follow the directions on the prescription label. Take your medicine at regular intervals. Do not take your medicine more often than directed. Take all of your medicine as directed even if you think you are better. Do not skip doses or stop your medicine early. Talk to your hr systems analyst regarding the use of this medicine in children. Special care may be needed. What side effects may I notice from receiving this medicine? Side effects that you should report to your doctor or health home care assistant as soon as possible: allergic reactions like skin rash or hives, swelling of the face, lips, or tongue confusion, clumsiness difficulty speaking discolored or sore mouth dizziness fever, infection numbness, tingling, pain or weakness in the hands or feet trouble passing urine or change in the amount of urine redness, blistering, peeling or loosening of the skin, including inside the mouth seizures unusually weak or tired vaginal irritation, dryness, or discharge Side effects that usually do not require medical attention (report to your doctor or health home care assistant if they continue or are bothersome): diarrhea headache irritability metallic taste nausea stomach pain or cramps trouble sleeping What may interact with this medicine? Do not take this medicine with any of the following medications: alcohol or any product that contains alcohol amprenavir oral solution cisapride disulfiram dofetilide dronedarone paclitaxel injection pimozide ritonavir oral solution sertraline oral solution sulfamethoxazole-trimethoprim injection thioridazine ziprasidone This medicine may also interact with the following medications: cimetidine lithium other medicines that prolong the QT interval (cause an abnormal heart rhythm) phenobarbital phenytoin warfarin What if I miss a dose? If you miss a dose, take it as soon as you can. If it is almost time for your next dose, take only that dose. Do not take double or extra doses. Where should I keep my medicine? Keep out of the reach of children. Store at room temperature below 25 degrees C (77 degrees F). Protect from light. Keep container tightly closed. Throw away any unused medicine after the expiration date. What should I tell my health care provider before I take this medicine? They need to know if you have any of these conditions: anemia or other blood disorders disease of the nervous system fungal or yeast infection if you drink alcohol containing drinks liver disease seizures an unusual or allergic reaction to metronidazole, or other medicines, foods, dyes, or preservatives or trying to get breast-feeding What should I watch for while using this medicine? Tell your doctor or health home care assistant if your symptoms do not improve or if they get worse. You may get drowsy or dizzy. Do not drive, use machinery, or do anything that needs mental alertness until you know how this medicine affects you. Do not stand or sit up quickly, especially if you are an older patient. This reduces the risk of dizzy or fainting spells. Avoid alcoholic drinks while you are taking this medicine and for three days afterward. Alcohol may make you feel dizzy, sick, or flushed. If you are being treated for a sexually transmitted disease, avoid sexual contact until you have finished your treatment. Your sexual partner may also need treatment. You have been given the following additional information: Vaginitis, Bacterial Metronidazole Oral tablet (Electronically signed by Oneida Jimenez A.R.N.P. 11/17/2016 18:09)
== END ==
LOC: ED SRH 15:34
DX: N76.0 Acute vaginitis (principal); F17.200 Nicotine dependence, unspecified, uncomplicated
CPT/HCPCS: 90195; 91227; 91228

== ENCOUNTER 2017-01-11 02:51 | Emergency (ER) | payer OTHER ==
--- NOTE | 2017-01-11 11:18 | ED NURSING NOTES ---
Clinical Report - Nurses [facility] [place] [address] 01/11/2017 2:51 Patient: SABRINA BOLIVAR [facility]#: [id number] TRIAGE Triage time 02:58 Jan 11 2017. Acuity: LEVEL 3. Chief Complaint: (EMS says patient was in parking lot, hyperventilating, N/V, uncooperative). 03:09 01/11/17. LUIS COMA SCORE: Luis Coma Scale: 10- eyes open to voice (3); best verbal response- inappropriate speech (3); best motor response- withdrawal (4). (Patient unwilling to cooperate, smells of Alcohol). --03:09 Ilana Blanco R.N. 02:58 01/11/17. HR: 95. RR: 30. O2 saturation: 97% on room air. --03:09 Ilana Blanco R.N. 03:38 01/11/17. BP: 106/72 (regular adult cuff) taken on the left arm. --03:39 Ilana Blanco R.N. 03:40 01/11/17. --03:40 Ilana Blanco R.N. 03:43 01/11/17. Temp: 97.6 F (oral). --03:43 Ilana Blanco R.N. Weight: 65.7 kg stated. Height/Length: 69 inches Per Patient. BMI: 21.4. --11:23 Monica Yoder R.N. Medications Anti-anxiety med. --03:41 Ilana Blanco R.N. Antidepressant. --03:42 Ilana Blanco R.N. The following entry was struck by Ilana Blanco R.N., 03:42 (01/11/17) Reason - wrong value. <<STRICKEN ENTRY-- None. --03:01 Ilana Blanco R.N. --END STRIKE>> The following entry was struck by Ilana Blanco R.N., 03:01 (01/11/17) Reason - other. <<STRICKEN ENTRY-- Pyridium Oral 200 mg, 3x a day. --02:59 Ilana Blanco R.N. --END STRIKE>> The following entry was struck by Ilana Blanco R.N., 03:01 (01/11/17) Reason - other. <<STRICKEN ENTRY-- Macrobid 100mg bid . --02:59 Ilana Blanco R.N. --END STRIKE>>. Allergies No Known Drug Allergy. --02:59 Ilana Blanco R.N. History Arrived by EMS. Historian: EMS. This started just prior to arrival. ( Patient unwilling to cooperate with vitals, questions, she is vomiting, hyperventilating, and does not want touched). Treatment VICE PRESIDENT INVESTOR RELATIONS: None. --03:09 Ilana Blanco R.N. PAST MEDICAL HX: Uses an intrauterine device. SOCIAL HX: Current every day light tobacco smoker (cigarette)- less than 1/2 a pack per day. Regular alcohol use; consumes four beers a week and liquor weekly. Last drink was just prior to arrival. History of heavy drug use: marijuana. No infectious disease exposure. --03:40 Ilana Blanco R.N. PROBLEMS: Vaginitis. STD - Sexually Transmitted Disease. UTI - Urinary Tract Infection. --02:59 Ilana Blanco R.N. ADDITIONAL SURGERIES: no known surgeries. Interventions ID band on patient. To treatment room. --03:09 Ilana Blanco R.N. PHYSICAL ASSESSMENT 03:11 01/11/17. To room via stretcher. GENERAL / NEURO / PSYCH: Appears anxious. Decreased awareness (opens eyes to voice and drowsy). Mood/affect abnormal (agitated and tearful). HEENT: No facial asymmetry noted. Mucous membranes are pink. RESPIRATORY: Chest nontender. Breath sounds within normal limits. CVS: Capillary refill less than 2 seconds. Pulses within normal limits. GI / : Abdomen soft. SKIN: Skin intact. Skin is warm. Normal skin turgor. --03:11 Ilana Blanco R.N. NURSING PROGRESS NOTES 03:15 01/11/17. The plan of care for this patient has been created. Reassurance given. Side rails up x 2. Bed placed in lowest position. Brakes of bed on. Patient ready for evaluation- chart flagged and ED physician notified. --03:15 Ilana Blanco R.N. 03:21 01/11/2017 Ativan (LORazepam) IM 2 mg given. Given in the left gluteus cleo. Allergies verified and confirmed 5 rights. --03:21 Darrell Worthy R.N. ( Pt's friend at bedside. Friend was out with pt tonight. Pt now giggling and laying calmly, able to speak and answer questions. Pt report that she takes an "anti-anxiety" medication as well as a "anti-depressant", both of which she took "earlier today". Pt and friend deny any drug use tonight, just alcohol.). --03:36 Dorothy Victor R.N. 03:55 01/11/2017 Site #1 started via IV in the left antecubital space with an 20g angiocath, with aseptic technique and good blood return; one attempt. Blood drawn: rainbow set. Labeled in the presence of the patient and sent to the lab. Saline lock flushed with 10 mL saline. --04:04 Emani James R.N. 04:05 01/11/2017 Started bag #1 1000 mL IV Fluids IV NS (Saline); at 125 mL/hr over 4 hour(s) via site #1 via IV pump. Allergies verified and confirmed 5 rights. IV patency established. IV site checked: no pain, redness, or swelling. IV flushed thoroughly pre- and post-medication administration. --04:05 Ilana Blanco R.N. 04:21 01/11/17. HR: 86. RR: 18. O2 saturation: 93%. --04:23 Ilana Blanco R.N. 04:09 01/11/2017 Ativan IM Response: no adverse reaction pain is improving. Symptoms have improved the patient feels better. --04:24 Ilana Blanco R.N. 04:23 01/11/17. Head of bed elevated. Reassessment after medication administered (Ativan). She is sleeping. Overall patient status is improved. ( Patients friend no longer at bedside.). --04:23 Ilana Blanco R.N. 05:09 01/11/17. HR: 80. RR: 18. O2 saturation: 99% on room air. --05:10 Ilana Blanco R.N. 05:10 01/11/17. ( Patient sleeping). --05:10 Ilana Blanco R.N. 06:13 01/11/17. HR: 78 (regular and normal rate). RR: 18. O2 saturation: 98% on room air. --06:14 Ilana Blanco R.N. 06:14 01/11/17. RESPIRATORY: No respiratory distress. Breath sounds normal. CVS: Normal sinus rhythm noted. SKIN: Skin is warm. Skin color within normal limits. ( Patient resting quietly). --06:14 Ilana Blanco R.N. 06:59 01/11/17. Care transferred and report given (RUBEN Freeman). --06:59 Ilana Blanco R.N. 08:04 01/11/2017 Zofran (Ondansetron HCl) IVP 4 mg given over 2 minute(s) via site #1. Allergies verified and confirmed 5 rights. IV patency established. IV site checked: no pain, redness, or swelling. IV flushed thoroughly pre- and post-medication administration. --08:04 Monica Yoder R.N. 08:07 01/11/17. BP: 96/46. HR: 72. RR: 16. O2 saturation: 98%. Temp: 98.4 F. Pain level now 0/10. --08:08 Monica Yoder R.N. ( Patient sleeping arousing but not waking up.). --08:08 Monica Yoder R.N. 08:30 01/11/2017 IV Fluids IV NS Discontinued: bag #1 infused. Total amount infused: 1000 mL. IV patency established. IV site checked: no pain, redness, or swelling. IV flushed thoroughly. --08:30 Monica Yoder R.N. 08:31 01/11/2017 Started bag #1 1000 mL IV Fluids IV NS (Saline); at 999 mL/hr over 1 hour(s) via site #1 via dial-a-flow. Allergies verified and confirmed 5 rights. IV patency established. IV site checked: no pain, redness, or swelling. IV flushed thoroughly pre- and post-medication administration. --08:31 Monica Yoder R.N. 08:47 01/11/2017 Started bag #3 1000 mL IV Fluids IV NS (Saline); at 500 mL/hr over 2 hour(s) via site #1 via IV pump. Allergies verified and confirmed 5 rights. IV patency established. IV site checked: no pain, redness, or swelling. IV flushed thoroughly pre- and post-medication administration. --08:47 Monica Yoder R.N. 08:47 01/11/2017 IV Fluids IV NS Discontinued: bag #2 infused. Total amount infused: 1000 mL. IV patency established. IV site checked: no pain, redness, or swelling. IV flushed thoroughly. --08:47 Monica Yoder R.N. DISPOSITION / DISCHARGE 11:16 01/11/2017 Site #1 removed upon discharge. Catheter intact. Pressure dressing applied. --11:16 Monica Yoder R.N. 11:16 01/11/2017 IV Fluids IV NS Discontinued: bag #3 completed upon discharge. Total amount infused: 1000 mL. IV patency established. IV site checked: no pain, redness, or swelling. IV flushed thoroughly. --11:16 Monica Yoder R.N. Departure time: 11:Jan 11 2017. Condition at departure: improved. The patient left prior to discharge education being provided. The patient was discharged home. She left the Emergency Department ambulatory. --11:23 Monica Yoder R.N. 11:15 01/11/17. BP: 112/70. HR: 68. RR: 18. O2 saturation: 97%. Temp: 98.4 F. Pain level now 0/10. --11:23 Monica Yoder R.N. Locked/Released at 01/11/2017 19:13 by Monica Yoder R.N.
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
--- NOTE | 2017-01-11 11:18 | ED ORDER SUMMARY ---
..... Patient: SABRINA BOLIVAR OrderSheet [facility] VisitID: [id number] [address] [place] [address] 21y, F Registration Date/Time: 01/11/2017 ORDER SHEET Weight: 65.7 kg (stated) Allergies: No Known Drug Allergy GENERAL ORDERS: Test Consultant (Continuous) (03:01/11/2017 Sharmin GUTIERREZ) (Ack 3:23 Chaparrita) (3:50 Esvins R.N.) - (4 point restraints) (:01/11/2017 Sharmin GUTIERREZ) (Ack 4:24 Oneal R.N.) (8:48 LWhalen R.N.) Cardiac Panel Stat (:01/11/2017 Sharmin GUTIERREZ) (Ack 3:23 Chaparrita) (4:03 Michael R.N.) UA-Culture if indicated Urgent (:01/11/2017 Sharmin GUTIERREZ) (Ack 3:23 Chaparrita) (11:16 LWhalen R.N.) Urine Urgent (:01/11/2017 Sharmin GUTIERREZ) (Ack 3:23 Chaparrita) (11:16 LWhalen R.N.) Urine Drug Screen Urgent (:01/11/2017 Sharmin GUTIERREZ) (Ack 3:24 Chaparrita) (11:16 LWhalen R.N.) Ethyl Alcohol Urgent (03:01/11/2017 Sharmin GUTIERREZ) (Ack 3:24 Chaparrita) (4:03 Michael R.N.) Salicylate Level Urgent (:01/11/2017 Sharmin GUTIERREZ) (Ack 3:24 Chaparrita) (4:03 Michael R.N.) Acetaminophen Level Urgent (:01/11/2017 Sharmin GUTIERREZ) (Ack 3:25 Chaparrita) (4:03 Michael R.N.) Pulse oximeter (:01/11/2017 Sharmin GUTIERREZ) (3:21 RCollier R.N.) Diet (Please order in [facility]) (Regular Diet) (07:52 01/11/2017 LNations ER Tech1 verbal order read back to Sharmin GUTIERREZ) (Ack 7:52 LNations ER Tech1) (8:07 LNations ER Tech1) MEDICATION ORDERS: Ativan IM 2 mg (NOW) (03:17 01/11/2017 Sharmin GUTIERREZ) (3:21 YobanyQukatelyn R.N.) IV FLUIDS: IV NS : initial bolus none -, then 500 mL/hr for 4h (NOW); Routine (03:18 01/11/2017 Sharmin GUTIERREZ) (Ack 3:25 Esvins R.N.) (4:05 Esvins R.N.) Zofran IV 4 mg (NOW) (03:18 01/11/2017 Sharmin GUTIERREZ) (Ack 3:25 Oneal R.N.) (8:04 LWhalen R.N.) IV NS : initial bolus none -, then 1000 mL/hr for X1 (NOW); Routine (07:47 01/11/2017 Sharmin GUTIERREZ) (Ack 7:56 Eneida R.N.) (8:31 LWhalen R.N.) ORDER SHEET NOTES: [Electronically signed by Monica Yoder R.N. (19:13 01/11/2017)] [Electronically signed by Brennon Link DO (22:55 01/11/2017)] [Electronically locked/signed by Monica Yoder R.N. (19:13 01/11/2017)]
--- NOTE | 2017-01-11 11:18 | ED ORDER SUMMARY ---
..... Patient: SABRINA BOLIVAR OrderSheet [facility] VisitID: [id number] [address] [place] [address] 21y, F Registration Date/Time: 01/11/2017 ORDER SHEET Weight: 65.7 kg (stated) Allergies: No Known Drug Allergy GENERAL ORDERS: Health Program Manager (Continuous) (03:01/11/2017 Sharmin GUTIERREZ) (Ack 3:23 Chaparrita) (3:50 Esvins R.N.) - (4 point restraints) (:01/11/2017 Sharmin GUTIERREZ) (Ack 4:24 Oneal R.N.) (8:48 LWhalen R.N.) Cardiac Panel Stat (:01/11/2017 Sharmin GUTIERREZ) (Ack 3:23 Chaparrita) (4:03 Michael R.N.) UA-Culture if indicated Urgent (:01/11/2017 Sharmin GUTIERREZ) (Ack 3:23 Chaparrita) (11:16 LWhalen R.N.) Urine Urgent (:01/11/2017 Sharmin GUTIERREZ) (Ack 3:23 Chaparrita) (11:16 LWhalen R.N.) Urine Drug Screen Urgent (:01/11/2017 Sharmin GUTIERREZ) (Ack 3:24 Chaparrita) (11:16 LWhalen R.N.) Ethyl Alcohol Urgent (03:01/11/2017 Sharimn GUTIERREZ) (Ack 3:24 Chaparrita) (4:03 Michael R.N.) Salicylate Level Urgent (:01/11/2017 Sharmin GUTIERREZ) (Ack 3:24 Chaparrita) (4:03 Michael R.N.) Acetaminophen Level Urgent (:01/11/2017 Sharmin GUTIERREZ) (Ack 3:25 Chaparrita) (4:03 Michael R.N.) Pulse oximeter (:01/11/2017 Sharmin GUTIERREZ) (3:21 RCollier R.N.) Diet (Please order in [facility]) (Regular Diet) (07:52 01/11/2017 LNations ER Tech1 verbal order read back to Sharmin GUTIERREZ) (Ack 7:52 LNations ER Tech1) (8:07 LNations ER Tech1) MEDICATION ORDERS: Ativan IM 2 mg (NOW) (03:17 01/11/2017 Sharmin GUTIERREZ) (3:21 YobanyQukatelyn R.N.) IV FLUIDS: IV NS : initial bolus none -, then 500 mL/hr for 4h (NOW); Routine (03:18 01/11/2017 Sharmin GUTIERREZ) (Ack 3:25 Esvins R.N.) (4:05 Esvins R.N.) Zofran IV 4 mg (NOW) (03:18 01/11/2017 Sharmin GUTIERREZ) (Ack 3:25 Oneal R.N.) (8:04 LWhalen R.N.) IV NS : initial bolus none -, then 1000 mL/hr for X1 (NOW); Routine (07:47 01/11/2017 Sharmin GUTIERREZ) (Ack 7:56 Eneida R.N.) (8:31 LWhalen R.N.) ORDER SHEET NOTES: [Electronically signed by Monica Yoder R.N. (19:13 01/11/2017)] [Electronically signed by Brennon Link DO (22:55 01/11/2017)] [Electronically locked/signed by Monica Yoder R.N. (19:13 01/11/2017)]
--- NOTE | 2017-01-11 22:55 | ED MAR SUMMARY ---
..... Medication Administration Record [facility] [address] [facility] [place] [address] Patient: SABRINA BOLIVAR Visit ID: [id number] 21y, F Weight: 65.7 kg Height/Length: 69 in BMI: 21.4 ALLERGIES: No Known Drug Allergy Given 03:21 01/11/2017 Darrell Worthy R.NArya Medication Administered: ATIVAN [IM] (LORAZEPAM), Dose: 2 mg IM. Medication Ordered: Ativan IM 2 mg (NOW). Start 04:05 01/11/2017 Ilana Blanco R.N., Stop 08:30 01/11/2017 Monica Yoder R.N. Medication Administered: IV NS (SALINE), Dose: IV Fluids over 4 hour(s), Rate: 125 mL/hr, Dispensed: 1000 mL bag, Site: #1 left AC. Medication Ordered: IV NS : initial bolus none -, then 500 mL/hr for 4h (NOW); Routine. Given 08:04 01/11/2017 Monica Yoder R.N. Medication Administered: ZOFRAN [IVP] (ONDANSETRON HCL), Dose: 4 mg IVP over 2 minute(s), Site: #1 left AC. Medication Ordered: Zofran IV 4 mg (NOW). Start 08:31 01/11/2017 Monica Yoder R.N., Stop 08:47 01/11/2017 Monica Yoder R.N. Medication Administered: IV NS (SALINE), Dose: IV Fluids over 1 hour(s), Rate: 999 mL/hr, Dispensed: 1000 mL bag, Site: #1 left AC. Medication Ordered: IV NS : initial bolus none -, then 1000 mL/hr for X1 (NOW); Routine. Start 08:47 01/11/2017 Monica Yoder R.N., Stop 11:16 01/11/2017 Monica Yoder R.N. Medication Administered: IV NS (SALINE), Dose: IV Fluids over 2 hour(s), Rate: 500 mL/hr, Dispensed: 1000 mL bag, Site: #1 left AC. Medication Ordered: IV NS : initial bolus none -, then 500 mL/hr for 4h (NOW); Routine.
--- NOTE | 2017-01-11 22:55 | ED DISCHARGE INSTRUCTIONS ---
Patient: SABRINA BOLIVAR General Instructions [facility] VisitID: [id number] [address] [place] [address] 21y, F Registration Date/Time: 01/11/2017 Chronic post-traumatic stress disorder (with acute exacerbation). Uncomplicated alcohol intoxication. Chronic substance abuse- tobacco (cigarettes), marijuana with perceptual disturbance and anxiety. INSTRUCTIONS Do not work for two days. Drink plenty of fluids. Do not smoke. Seek medical help to quit smoking. No alcohol. Seek medical help to quit drinking. Warnings: Further evaluation is necessary. It is very important to follow up with a physician. CONTROLLED SUBSTANCE WARNINGS. GENERAL WARNINGS: Return or contact your physician immediately if your condition worsens or changes unexpectedly, if not improving as expected, or if other problems arise. Your Current Medications: CONTINUE TAKING THE FOLLOWING MEDICATIONS: Anti-anxiety med*. Antidepressant*. Follow-up: Follow up with your doctor tomorrow. Follow-up with: [facility], , , [address], , [place], [address]; [facility], , , [address] [place] [address], , [place], ; [facility], , [address] [place] [address] Follow up tomorrow. ADDITIONAL INFORMATION Alcohol Intoxication Alcohol intoxication occurs when you drink alcohol faster than your liver can remove it from your system. Alcohol intoxication affects your judgment and coordination. Very high blood alcohol levels can cause coma, very slow breathing and even . If you drink alcohol every day, this may gradually cause permanent damage to your liver, brain, heart, pancreas and other organs. Alcohol use during may cause permanent damage to the growing baby. Home Care: Do not drink any more alcohol. DO NOT DRIVE until all effects of the alcohol have worn off. Get lots of rest over the next few days. Drink plenty of water and other non-alcoholic liquids. Try to eat regular meals. If you have been drinking heavily on a daily basis, you may go through alcohol withdrawl. This is also called the shakes or DTs. The usual symptoms last 3 to 4 days and may include nervousness, shakiness, nausea, sweating or sleeplessness. During this time, it is best that you stay with family or friends who can help and support you. You can also admit yourself to a residential detox program. If your symptoms are severe, contact your doctor for medicines to help. Follow Up: If alcohol is causing a problem in your life, these and other organizations can help you: Alcoholics Anonymous offers support through a self-help fellowship. There are no dues or fees. See the Yellow Pages and call for time and place of meetings. www.aa.org AlLien EnforcementAnoart offers support to families of alcohol users. 610.700.2503 www.al-anon.org National [place] On Alcoholism And Drug Dependence 134-126-3393 www.ncadd.org There are also inpatient or residential alcohol detox programs. Check the Internet or phonebook Yellow Pages under Drug Abuse & Treatment Centers. Get Prompt Medical Attention if any of the following occur: there) How To Quit Smoking Smoking is one of the hardest habits to break. About half of all those who have ever smoked have been able to quit, and most of those (about 70%) who still smoke want to quit. Here are some of the best ways to stop smoking. Keep Trying: It takes most smokers about 8 tries before they are finally able to fully quit. So, the more often you try and fail, the better your chance of quitting the next time! So, don't give up! Go Cold [place]: Most ex-smokers quit cold turkey. Trying to cut back gradually doesn't seem to work as well, perhaps because it continues the smoking habit. Also, it is possible to fool yourself by inhaling more while smoking fewer cigarettes. This results in the same amount of nicotine in your body! Get Support: Support programs can make an important difference, especially for the heavy smoker. These groups offer lectures, methods to change your behavior and peer support. Call the free national Quitline for more information. 660-FVSG-XBC (540-030-3868). Low-cost or free programs are offered by many hospitals, local chapters of the [place] [employer] (451-908-8621) and the [place] [employer] (820-946-7072). Support at home is important too. Non-smokers can help by offering praise and encouragement. If the smoker fails to quit, encourage them to try again! Eutu-Wcz-Nbgalzd Medicines: For those who can't quit on their own, Nicotine Replacement Therapy (NRT) may make quitting much easier. Certain aids such as the nicotine patch, gum and lozenge are available without a prescription. However, it is best to use these under the guidance of your doctor. The skin patch provides a steady supply of nicotine to the body. Nicotine gum and lozenge gives temporary bursts of low levels of nicotine. Both methods take the edge off the craving for cigarettes. WARNING: If you feel symptoms of nicotine overdose, such as nausea, vomiting, dizziness, weakness, or fast heartbeat, stop using these and see your doctor. Prescription Medicines: After evaluating your smoking patterns and prior attempts at quitting, your doctor may offer a prescription medicine such as bupropion (Zyban, Wellbutrin), varenicline (Chantix, Champix), a niocotine inhaler or nasal spray. Each has its unique advantage and side effects which your doctor can review with you. Health Benefits Of Quitting: The benefits of quitting start right away and keep improving the longer you go without smokin minutes: blood pressure and pulse return to normal 8 hours: oxygen levels return to normal 2 days: ability to smell and taste begins to improve as damaged nerves start to regrow 2-3 weeks: circulation and lung function improves 1-9 months: decreased cough, congestion and shortness of breath; less tired 1 year: risk of heart attack decreases by half 5 years: risk of lung cancer decreases by half; risk of stroke becomes the same as a non-smoker For information about how to quit smoking, visit the following links: National Cancer [place] , Clearing the Air, Quit Smoking Today - an online booklet. http://www.smokefree.gov/pubs/clearing_the_air.pdf Smokefree.gov http://smokefree.gov/ QuitNet http://www.quitnet.com/ You have been given the following additional information: Alcohol Intoxication Smoking Cessation Do not work for two days. (Electronically signed by Brennon Link DO 01/11/2017 22:55)
--- NOTE | 2017-01-11 22:55 | ED MED RECONCILIATION SUMMARY ---
Patient: SABRINA BOLIVAR Medication Reconciliation Report [facility] VisitID: [id number] [address] [place] [address] 21y, F Registration Date/Time: 01/11/2017 Weight: 65.7 kg Height/Length: 69 in. BMI: 21.4 ALLERGIES: No Known Drug Allergy The patient's Home Medications are listed below: CONTINUE TAKING THE FOLLOWING MEDICATIONS: Anti-anxiety med Antidepressant The source(s) of the original Home Medication information: Not obtained. The following Medications were given to the patient in the Emergency Department: Ativan [IM] IM 2 mg, administered: 01/11/2017 3:21:00 AM IV NS IV Fluids bolus 0, then 125 mL/hr, administered: 01/11/2017 4:05:00 AM Zofran [IVP] IVP 4 mg, administered: 01/11/2017 8:04:00 AM IV NS IV Fluids bolus 0, then 999 mL/hr, administered: 01/11/2017 8:31:00 AM IV NS IV Fluids bolus 0, then 500 mL/hr, administered: 01/11/2017 8:47:00 AM The following Medications were prescribed to the patient: None.
--- NOTE | 2017-01-11 22:55 | ED MAR SUMMARY ---
..... Medication Administration Record [facility] [address] [place] [address] Patient: SABRINA BOLIVAR Visit ID: [id number] 21y, F Weight: 65.7 kg Height/Length: 69 in BMI: 21.4 ALLERGIES: No Known Drug Allergy Given 03:21 01/11/2017 Darrell Worthy R.NArya Medication Administered: ATIVAN [IM] (LORAZEPAM), Dose: 2 mg IM. Medication Ordered: Ativan IM 2 mg (NOW). Start 04:05 01/11/2017 Ilana Blanco R.N., Stop 08:30 01/11/2017 Monica Yoder R.N. Medication Administered: IV NS (SALINE), Dose: IV Fluids over 4 hour(s), Rate: 125 mL/hr, Dispensed: 1000 mL bag, Site: #1 left AC. Medication Ordered: IV NS : initial bolus none -, then 500 mL/hr for 4h (NOW); Routine. Given 08:04 01/11/2017 Monica Yoder R.N. Medication Administered: ZOFRAN [IVP] (ONDANSETRON HCL), Dose: 4 mg IVP over 2 minute(s), Site: #1 left AC. Medication Ordered: Zofran IV 4 mg (NOW). Start 08:31 01/11/2017 Monica Yoder R.N., Stop 08:47 01/11/2017 Monica Yoder R.N. Medication Administered: IV NS (SALINE), Dose: IV Fluids over 1 hour(s), Rate: 999 mL/hr, Dispensed: 1000 mL bag, Site: #1 left AC. Medication Ordered: IV NS : initial bolus none -, then 1000 mL/hr for X1 (NOW); Routine. Start 08:47 01/11/2017 Monica Yoder R.N., Stop 11:16 01/11/2017 Monica Yoder R.N. Medication Administered: IV NS (SALINE), Dose: IV Fluids over 2 hour(s), Rate: 500 mL/hr, Dispensed: 1000 mL bag, Site: #1 left AC. Medication Ordered: IV NS : initial bolus none -, then 500 mL/hr for 4h (NOW); Routine.
--- NOTE | 2017-01-11 22:55 | ED DISCHARGE INSTRUCTIONS ---
Patient: SABRINA BOLIVAR General Instructions [facility] VisitID: [id number] [address] [place] [address] 21y, F Registration Date/Time: 01/11/2017 Chronic post-traumatic stress disorder (with acute exacerbation). Uncomplicated alcohol intoxication. Chronic substance abuse- tobacco (cigarettes), marijuana with perceptual disturbance and anxiety. INSTRUCTIONS Do not work for two days. Drink plenty of fluids. Do not smoke. Seek medical help to quit smoking. No alcohol. Seek medical help to quit drinking. Warnings: Further evaluation is necessary. It is very important to follow up with a physician. CONTROLLED SUBSTANCE WARNINGS. GENERAL WARNINGS: Return or contact your physician immediately if your condition worsens or changes unexpectedly, if not improving as expected, or if other problems arise. Your Current Medications: CONTINUE TAKING THE FOLLOWING MEDICATIONS: Anti-anxiety med*. Antidepressant*. Follow-up: Follow up with your doctor tomorrow. Follow-up with: [facility], , , [address], , [place], [address]; [facility], , , [address] [place] [address], , [place], ; [facility], , [address] [place] [address] Follow up tomorrow. ADDITIONAL INFORMATION Alcohol Intoxication Alcohol intoxication occurs when you drink alcohol faster than your liver can remove it from your system. Alcohol intoxication affects your judgment and coordination. Very high blood alcohol levels can cause coma, very slow breathing and even . If you drink alcohol every day, this may gradually cause permanent damage to your liver, brain, heart, pancreas and other organs. Alcohol use during may cause permanent damage to the growing baby. Home Care: Do not drink any more alcohol. DO NOT DRIVE until all effects of the alcohol have worn off. Get lots of rest over the next few days. Drink plenty of water and other non-alcoholic liquids. Try to eat regular meals. If you have been drinking heavily on a daily basis, you may go through alcohol withdrawl. This is also called the shakes or DTs. The usual symptoms last 3 to 4 days and may include nervousness, shakiness, nausea, sweating or sleeplessness. During this time, it is best that you stay with family or friends who can help and support you. You can also admit yourself to a residential detox program. If your symptoms are severe, contact your doctor for medicines to help. Follow Up: If alcohol is causing a problem in your life, these and other organizations can help you: Alcoholics Anonymous offers support through a self-help fellowship. There are no dues or fees. See the Yellow Pages and call for time and place of meetings. www.aa.org AlSimpliVTAnoart offers support to families of alcohol users. 577.562.4196 www.al-anon.org National [place] On Alcoholism And Drug Dependence 513-154-7188 www.ncadd.org There are also inpatient or residential alcohol detox programs. Check the Internet or phonebook Yellow Pages under Drug Abuse & Treatment Centers. Get Prompt Medical Attention if any of the following occur: there) How To Quit Smoking Smoking is one of the hardest habits to break. About half of all those who have ever smoked have been able to quit, and most of those (about 70%) who still smoke want to quit. Here are some of the best ways to stop smoking. Keep Trying: It takes most smokers about 8 tries before they are finally able to fully quit. So, the more often you try and fail, the better your chance of quitting the next time! So, don't give up! Go Cold [place]: Most ex-smokers quit cold turkey. Trying to cut back gradually doesn't seem to work as well, perhaps because it continues the smoking habit. Also, it is possible to fool yourself by inhaling more while smoking fewer cigarettes. This results in the same amount of nicotine in your body! Get Support: Support programs can make an important difference, especially for the heavy smoker. These groups offer lectures, methods to change your behavior and peer support. Call the free national Quitline for more information. 355-LIDL-OOF (644-319-2004). Low-cost or free programs are offered by many hospitals, local chapters of the [place] [employer] (454-589-3010) and the [place] [employer] (921-809-4540). Support at home is important too. Non-smokers can help by offering praise and encouragement. If the smoker fails to quit, encourage them to try again! Fxia-Lug-Mjgbltx Medicines: For those who can't quit on their own, Nicotine Replacement Therapy (NRT) may make quitting much easier. Certain aids such as the nicotine patch, gum and lozenge are available without a prescription. However, it is best to use these under the guidance of your doctor. The skin patch provides a steady supply of nicotine to the body. Nicotine gum and lozenge gives temporary bursts of low levels of nicotine. Both methods take the edge off the craving for cigarettes. WARNING: If you feel symptoms of nicotine overdose, such as nausea, vomiting, dizziness, weakness, or fast heartbeat, stop using these and see your doctor. Prescription Medicines: After evaluating your smoking patterns and prior attempts at quitting, your doctor may offer a prescription medicine such as bupropion (Zyban, Wellbutrin), varenicline (Chantix, Champix), a niocotine inhaler or nasal spray. Each has its unique advantage and side effects which your doctor can review with you. Health Benefits Of Quitting: The benefits of quitting start right away and keep improving the longer you go without smokin minutes: blood pressure and pulse return to normal 8 hours: oxygen levels return to normal 2 days: ability to smell and taste begins to improve as damaged nerves start to regrow 2-3 weeks: circulation and lung function improves 1-9 months: decreased cough, congestion and shortness of breath; less tired 1 year: risk of heart attack decreases by half 5 years: risk of lung cancer decreases by half; risk of stroke becomes the same as a non-smoker For information about how to quit smoking, visit the following links: National Cancer [place] , Clearing the Air, Quit Smoking Today - an online booklet. http://www.smokefree.gov/pubs/clearing_the_air.pdf Smokefree.gov http://smokefree.gov/ QuitNet http://www.quitnet.com/ You have been given the following additional information: Alcohol Intoxication Smoking Cessation Do not work for two days. (Electronically signed by Brennon Link DO 01/11/2017 22:55)
--- NOTE | 2017-01-11 22:55 | ED MED RECONCILIATION SUMMARY ---
Patient: SABRINA BOLIVAR Medication Reconciliation Report [facility] VisitID: [id number] [address] [place] [address] 21y, F Registration Date/Time: 01/11/2017 Weight: 65.7 kg Height/Length: 69 in. BMI: 21.4 ALLERGIES: No Known Drug Allergy The patient's Home Medications are listed below: CONTINUE TAKING THE FOLLOWING MEDICATIONS: Anti-anxiety med Antidepressant The source(s) of the original Home Medication information: Not obtained. The following Medications were given to the patient in the Emergency Department: Ativan [IM] IM 2 mg, administered: 01/11/2017 3:21:00 AM IV NS IV Fluids bolus 0, then 125 mL/hr, administered: 01/11/2017 4:05:00 AM Zofran [IVP] IVP 4 mg, administered: 01/11/2017 8:04:00 AM IV NS IV Fluids bolus 0, then 999 mL/hr, administered: 01/11/2017 8:31:00 AM IV NS IV Fluids bolus 0, then 500 mL/hr, administered: 01/11/2017 8:47:00 AM The following Medications were prescribed to the patient: None.
== END 2017-01-11 11:20 | disposition home or self-care (01) ==
LOC: ED SRH 02:51
DX: F43.12 Post-traumatic stress disorder, chronic (principal); F10.120 Alcohol abuse with intoxication, uncomplicated; F12.180 Cannabis abuse with cannabis-induced anxiety disorder; F17.210 Nicotine dependence, cigarettes, uncomplicated
CPT/HCPCS: 90004; 90100; 90616; 92010; 92610; 92720; 92760; 92761; 92762; 92763; 92764; 92765; 92766; 92767; 92780; 93070; 95059; 97000